=== PATIENT | male | born 1970 | race Two or more races ===

== ENCOUNTER 2024-02-10 16:29 | Inpatient (IN) | payer MEDICAID, SELFPAY ==
[2024-02-10] VITALS (29 sets, daily range): BP systolic 62–170; BP diastolic 35–87; PULSE 42–116; RESP 0–87; TEMP 35.9–39.7; O2SAT 78–100; BMI 23.4
--- NOTE | 2024-02-10 16:30 | PC.NURSE ---
arrived by ambulance with c/o fever and ams per family. family states that he gets a fever everytime they do dialysis and he had dialysis today. Pt with vascath to left chest
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
--- NOTE | 2024-02-10 16:47 | XR_ITS ---
Examination: AP chest single view TECHNIQUE: AP portable upright chest single view Exam date and time: February 10, 2024 1723 hours Comparison June 01, 2023 INDICATIONS: Sepsis alert today FINDINGS: Significant right lung pneumonia Large layered right pleural effusion Stable position left subclavian dialysis catheter Mild enlargement cardiac contour with mild to moderate vascular congestion Minor blunting of the left lateral costophrenic angle IMPRESSION: Significant right lung pneumonia Large layered right pleural effusion
--- NOTE | 2024-02-10 16:47 | EKG_ITS ---
[facility] Test Date: 2024-02-10 Pat Name: LIBORIO CASPER Department: Room: - Gender: Male [employer]: : [id number] Requested By: Idania Savage Order Number: [id number] Reading MD: Idania Savage Measurements Intervals [place] Rate: 89 P: 63 IL: 162 QRS: -6 QRSD: 91 T: 194 QT: 361 QTc: 440 Interpretive Statements SINUS RHYTHM ST DEVIATION AND MODERATE T-WAVE ABNORMALITY, CONSIDER LATERAL ISCHEMIA [-0.1+ mV T WAVE IN I/aVL/V5/V6] ST DEVIATION AND MODERATE T-WAVE ABNORMALITY, CONSIDER INFERIOR ISCHEMIA [-0.1+ mV T WAVE IN II/aVF] Compared to ECG 01/18/2024 17:38:59 Possible ischemia now present Prolonged QT interval no longer present T-wave abnormality still present /store/S0/[id number]/ecg/[id number].pdf
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
[2024-02-10 17:09] LABS: Lactate (Lactic Acid) 0.8 mMol/L (0.4-2.0)
--- NOTE | 2024-02-10 17:11 | PC.NURSE ---
dagmar n/p informed that in and out cath done and there was no urine
[2024-02-10 17:13] LABS: Basophils % (Auto) 0 % (0-2.5); Eosinophils # (Auto) 0.1 Thou/mm3 (0.0-0.5); Eosinophils % (Auto) 2 % (0-10); Hematocrit 31.3 % (41.0-53.0); Hemoglobin 10.4 g/dL (13.5-16.0); Immature Granulocytes % (Auto) 0 % (0-0); Immature Granulocytes Auto 0.01 Thou/mm3 (0.00-0.00); Lymphocytes # (Auto) 0.3 Thou/mm3 (1.0-4.8); Lymphocytes % (Auto) 6 % (10-50); Mean Corpuscular HGB Conc 33.2 g/dl (31.0-37.0); Mean Corpuscular Hemoglobin 31.9 pg (25.0-35.0); Mean Corpuscular Volume 96 fL (80-100); Monocytes # (Auto) 0.3 Thou/mm3 (0.0-0.8); Monocytes % (Auto) 6 % (0-12); Neutrophils # (Auto) 4.1 Thou/mm3 (1.8-7.7); Neutrophils % (Auto) 85 % (37-80); Nucleated Red Blood Cell % 0 /100 WBC (0); Platelet Count 104 Thou/mm3 (140-440); RDW Standard Deviation 51.1 fL (35.1-43.9); Red Blood Count 3.26 Miln/mm3 (4.50-5.90); White Blood Count 4.9 Thou/mm3 (3.8-10.6)
[2024-02-10 17:28] LABS: B-Type Natriuretic Peptide 451 pg/mL (0-100)
[2024-02-10 17:41] LABS: Partial Thromboplastin Time 33.8 Seconds (22.0-36.0); Prothrombin Time 11.4 Seconds (9.0-12.2)
[2024-02-10] MEDS: ACETAMINOPHEN SUPP 650 MG SUPP PR (17:42)
[2024-02-10] MEDS: PIPER/TAZO 3.375 GM 3.375 GM/50 ML BAG IV (17:43)
[2024-02-10 17:55] LABS: Alanine Aminotransferase 66 U/L (10-49); Albumin/Globulin Ratio 0.9 (1.2-2.2); Alkaline Phosphatase 298 U/L (46-116); Anion Gap 10 (7-16); Aspartate Amino Transferase 83 U/L (0-34); BUN/Creatinine Ratio 19 Ratio (12-20); Bilirubin,Total 0.2 mg/dL (0.3-1.2); Blood Urea Nitrogen 75 mg/dL (9-23); Calcium 10.2 mg/dL (8.3-10.6); Calcium (Corrected) 10.2 mg/dL (8.5-10.1); Carbon Dioxide 27.5 mMol/L (20.0-31.0); Chloride 99 mMol/L (98-107); Estimated Creatinine Clearance 14.8 mL/min (>60); Globulin 4.6 gm/dL (2.3-3.5); Glucose 95 mg/dL (74-106); LDH (Lactate Dehydrogenase) 333 U/L (120-246); Lipase 56 U/L (12-53); Magnesium 2.5 mg/dL (1.6-2.6); Osmolality,Calculated 294 (275-295); Phosphorous 3.3 mg/dL (2.4-5.1); Potassium 3.9 mMol/L (3.4-5.1); Procalcitonin 1.61 ng/ml (0.0-0.49); Sodium 136 mMol/L (136-145); Total Protein 8.6 gm/dL (5.7-8.2); eGFR 17 See Note
[2024-02-10 17:58] LABS: Troponin I 0.046 ng/mL (0.0-0.045)
[2024-02-10 18:36] LABS: Base Excess 4 (-3-3); HCO3 29 mEq/L (20-26); Inspired Oxygen, FIO2 21 %; O2 Saturation 77 % (91-98); PCO2 45 mmHg (32.0-48.0); pH, Arterial 7.42 (7.35-7.45)
[2024-02-10 18:42] LABS: Allen Test Performed/OK; Puncture Site Left Radial
[2024-02-10 18:44] LABS: PO2 42 mmHg (83-108)
[2024-02-10] MEDS: AZITHROMYCIN INJ 500 MG in SODIUM CHLORIDE 0.9% 250 ML 250 ML 250 MG IV (18:59)
[2024-02-10] MEDS: LORazepam 2 MG/ML VIAL 1 MG IVP (19:00)
[2024-02-10] MEDS: ONDANSETRON INJ 2 MG/ML INJ 2 ML 4 MG IV (19:03)
--- NOTE | 2024-02-10 19:15 | PC.NURSE ---
Pt went into respiratory failure, HR 50's, code arash called.
[2024-02-10] MEDS: ETOMIDATE INJ 2 MG/ML VIAL 10 ML 20 MG IVP (19:21)
[2024-02-10] MEDS: Norepinephrine/NS 16mg/250ml 16 MG/250 ML BAG 2.551 MG IV (19:30)
--- NOTE | 2024-02-10 19:30 | PC.NURSE ---
Pt cardiac rhythm Vfib which turn into PEA, CPR started, code blue called over head.
--- NOTE | 2024-02-10 19:40 | PC.NURSE ---
[facility] at 1938
[2024-02-10] MEDS: PROPOFOL 1,000 MG IVPB 1,000 MG/100 ML VIAL 1.633 MG IV (19:45)
--- NOTE | 2024-02-10 19:47 | PD.EDADDENDU ---
Emergency Room Addendum <Domingo Rodriguez MD - Last Filed: 02/10/24 20:00> Addendum Narrative: 7:[address] Rodriguez's note: This patient was being taken care by my PA Adalberto, when he all of a sudden went into cardiorespiratory arrest. CODE BLUE was announced overhead at 7:16 PM. Initially patient was only in respiratory arrest but in 15 minutes he lost his pulse. We proceeded to intubate him immediately. 2 residents tried to intubate him with a glide scope but they were unable to. Therefore a head bookkeeper tried to intubate him with a straight blade but he could not do either. Then, without wasting any time, I proceeded to intubate him with a conventional laryngoscope using MAC 4 blade and 7 and half ET tube, and the first try without wasting any time; we obtained a good CO2 capnometer color change and good bilaterally equal breath sounds. This was all done under 20 mg of etomidate and 10 mg of rocuronium IV. During this time CPR was being performed without stopping except for pulse check and appropriate drugs given including 2 calcium chloride and 1 amp of sodium bicarb. Initially patient was in persistent PEA but eventually he recovered a good strong pulse. The ICU resident is taking over the care and he is putting a central line in his right groin. <Nargis Watson - Last Filed: 02/10/24 20:01> Addendum Narrative: 7:[address] Rodriguez's note: This patient was being taken care by my PA Adalberto, when he all of a sudden went into cardiorespiratory arrest. CODE BLUE was announced overhead at 7:16 PM. Initially patient was only in respiratory arrest but in 15 minutes he lost his pulse. We proceeded to intubate him immediately. 2 residents tried to intubate him with a glide scope but they were unable to. Therefore a head bookkeeper tried to intubate him with a straight blade but he could not do either. Then, without wasting any time, I proceeded to intubate him with a conventional laryngoscope using MAC 4 blade and 7 and half ET tube, and the first try without wasting any time; we obtained a good CO2 capnometer color change and good bilaterally equal breath sounds. This was all done under 20 mg of etomidate and 10 mg of rocuronium IV. During this time CPR was being performed without stopping except for pulse check and appropriate drugs given including 2 calcium chloride and 1 amp of sodium bicarb. Initially patient was in persistent PEA but eventually he recovered a good strong pulse. The ICU resident is taking over the care and he is putting a central line in his right groin. CRITICAL CARE: TIME: 30 minutes. The high probability of sudden, clinically significant deterioration in the patient?s condition required the highest level of my preparedness to intervene urgently. The services I provided to this patient were to treat and/or prevent clinically significant deterioration. Services included the following: chart data review, reviewing nursing notes and/or old charts, documentation time, wellness consultant collaboration regarding findings and treatment options, medication orders and management, direct patient care, vital sign assessments and ordering, interpreting and reviewing diagnostic studies and lab tests. Aggregate critical care time includes only time during which I was engaged in work directly related to the patient?s care, as described above, whether at bedside or elsewhere in the Emergency Department. It did not include time spent performing other reported procedures or the services of residents, students, nurses or physician assistants.
--- NOTE | 2024-02-10 20:08 | XR_ITS ---
Examination: AP chest single view Technique: AP portable supine chest single view Exam date and time: February 10, 2024 2016 hrs. Comparison January 18, 2024, February 10, 2024 1719 hrs. Indications: Hypoxic respiratory failure postintubation today Findings: Mild enlargement cardiac contour with prominent vascular congestion Pneumonia right base with large right pleural effusion Stable position cardiac left subclavian dialysis catheter tip Endotracheal tube tip 4.5 cm above jolanta Orogastric tube in stomach, the tip below the level of the film Impression: Interval endotracheal tube, tip 4.5 cm above jolanta Interval orogastric tube in the stomach, the tip below the level of the film
--- NOTE | 2024-02-10 20:11 | XR_ITS ---
Examination: CT chest, without intravenous contrast. Sagittal and coronal 2-D reconstructions. Exam date and time: February 10, 2024 at 2100 hrs. Indications: Hypoxic respiratory failure, pneumonia ARDS pattern on chest imaging this week Comparison: March 26, 2021 CTDI:vol (mGy) 23.9 DLP: (mGycm) 85 Technique: Multiple 3.0 mm axial sections of the chest to been obtained. Bone and lung density settings are obtained. Sagittal and coronal 2-D reconstructions have been obtained. Low dose protocols were performed. One or more of the following dose reduction techniques were used; automated exposure control, adjustment of the mA and/or KV according to patient size, use of iterative reconstruction technique. Findings: Endotracheal tube tip 2.7 cm above jolanta No thoracic aortic aneurysm dilatation Pulmonary artery segments are not enlarged Moderate calcification left anterior descending coronary artery Extensive bilateral pneumonia with multiple right lower lobe pulmonary nodules, the largest 7 mm Extensive loculated right pleural fluid Mild left pleural fluid Orogastric tube in the stomach Distended gallbladder Spleen not enlarged No pancreatic mass No hydronephrosis Abdominal aortic calcification no aneurysmal dilatation Large osteolytic areas T11 and T12 Impression: Extensive bilateral pneumonia Loculated extensive right pleural disease Distended gallbladder, recommend hepatobiliary sonography follow-up Extensive osteolytic areas involving T12 and T11, likely osteomyelitis or osseous metastatic disease, recommend MRI thoracic spine follow-up pre and postcontrast
[2024-02-10] MEDS: fentaNYL 2,500 MCG/250 ML BAG 2,500 MCG/250 ML BAG IV (20:12)
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
[2024-02-10 20:52] LABS: Basophils % (Auto) 0 % (0-2.5); Eosinophils % (Auto) 0 % (0-10); Hematocrit 33.6 % (41.0-53.0); Hemoglobin 10.7 g/dL (13.5-16.0); Immature Granulocytes % (Auto) 1 % (0-0); Immature Granulocytes Auto 0.11 Thou/mm3 (0.00-0.00); Lymphocytes # (Auto) 0.7 Thou/mm3 (1.0-4.8); Lymphocytes % (Auto) 7 % (10-50); Mean Corpuscular HGB Conc 31.8 g/dl (31.0-37.0); Mean Corpuscular Volume 101 fL (80-100); Monocytes # (Auto) 0.2 Thou/mm3 (0.0-0.8); Monocytes % (Auto) 2 % (0-12); Neutrophils # (Auto) 8.6 Thou/mm3 (1.8-7.7); Neutrophils % (Auto) 90 % (37-80); Nucleated Red Blood Cell # 0.02 Thou/mm3 (0.00-0.00); Nucleated Red Blood Cell % 0 /100 WBC (0); Platelet Count 126 Thou/mm3 (140-440); RDW Standard Deviation 53.6 fL (35.1-43.9); Red Blood Count 3.34 Miln/mm3 (4.50-5.90); White Blood Count 9.6 Thou/mm3 (3.8-10.6)
[2024-02-10 20:55] LABS: Lactate (Lactic Acid) 4.5 mMol/L (0.4-2.0)
[2024-02-10 21:28] LABS: Alanine Aminotransferase 62 U/L (10-49); Albumin, Serum 3.4 gm/dL (3.5-5.0); Albumin/Globulin Ratio 0.9 (1.2-2.2); Alkaline Phosphatase 272 U/L (46-116); Anion Gap 13 (7-16); Aspartate Amino Transferase 99 U/L (0-34); BUN/Creatinine Ratio 18 Ratio (12-20); Bilirubin,Total 0.3 mg/dL (0.3-1.2); Blood Urea Nitrogen 78 mg/dL (9-23); Calcium 11.1 mg/dL (8.3-10.6); Calcium (Corrected) 11.6 mg/dL (8.5-10.1); Carbon Dioxide 21.9 mMol/L (20.0-31.0); Chloride 102 mMol/L (98-107); Creatinine (Component) 4.3 mg/dL (0.6-1.3); Estimated Creatinine Clearance 13.7 mL/min (>60); Globulin 3.9 gm/dL (2.3-3.5); Glucose 150 mg/dL (74-106); Magnesium 2.6 mg/dL (1.6-2.6); Osmolality,Calculated 300 (275-295); Phosphorous 5.2 mg/dL (2.4-5.1); Potassium 3.5 mMol/L (3.4-5.1); Sodium 137 mMol/L (136-145); Total Protein 7.3 gm/dL (5.7-8.2); eGFR 15 See Note
[2024-02-10 21:36] LABS: Base Excess -4 (-3-3); HCO3 24 mEq/L (20-26); Inspired Oxygen, FIO2 21 %; O2 Saturation 94 % (91-98); PCO2 56 mmHg (32.0-48.0); PO2 82 mmHg (83-108); pH, Arterial 7.24 (7.35-7.45)
[2024-02-10 21:38] LABS: Allen Test Performed/OK; Puncture Site Left Radial
--- NOTE | 2024-02-10 21:44 | PC.RT ---
PT transferred to CT on Transport vent without complications, then to ICU. No complications in Route. PT arrived to ICU @2107 and report given to RT Pieter.
--- NOTE | 2024-02-10 21:49 | PC.RT ---
RR increased to 22 per Md Sullivan and post ABG.
[2024-02-10] MEDS: PANTOPRAZOLE INJ 40 MG VIAL IVP (21:54)
--- NOTE | 2024-02-10 21:56 | PC.RT ---
RR changed to 22 per RT Desire due to abg results, fio2 titrated to 90% at this time. DR. Tian made aware.
[2024-02-10] MEDS: LORazepam 2 MG/ML VIAL IVP (21:57)
[2024-02-10] MEDS: MIDODRINE 5 MG TABLET 10 MG PO (22:35)
[2024-02-10] MEDS: VANCOMYCIN/NS 1 GM IVPB 200 ML IV (22:51)
--- NOTE | 2024-02-10 22:51 | PC.NURSE ---
Per MD MAHAN, made aware of Vancomycin allergy. Per , he stated it's still okay to give at this time.
[2024-02-10 23:43] LABS: Reflex Lactate? Y
[2024-02-11] VITALS (85 sets, daily range): BP systolic 71–168; BP diastolic 44–89; PULSE 62–92; RESP 18–38; TEMP 36.4–37.5; O2SAT 89–98; BMI 22.1; BMI 22.2
--- NOTE | 2024-02-11 00:37 | XR_ITS ---
Examination: Abdomen AP single view Technique: AP portable supine abdomen, single view Exam date and time: February 11, 2024 1242 hours INDICATIONS: Post central line placement FINDINGS: Right common femoral central line tip IVC satisfactory position Nonobstructive bowel gas pattern IMPRESSION: Right common femoral central line tip satisfactory position
[2024-02-11] MEDS: VASOPRESSIN IN NS IVPB 20 UNIT/100 ML BAG 9 UNIT IV ×2 (01:00→09:55)
[2024-02-11 01:25] LABS: Lactic Acid, 3 HR 2.6 mMol/L (0.4-2.0)
--- NOTE | 2024-02-11 04:16 | ECHO_ITS ---
Transthoracic Echo Report Ht (in): 60 Wt (lb): 120 Exam Location: Portable Status: Inpatient Electrical Power Engineer: Medina Reilly Indications: Procedure Performed: BP: 83 / 57 HR: 78 Rhythm: Sinus Technical Quality: Fair MEASUREMENTS (Male / Female) Normal Values 2D ECHO LV Diastolic Diameter PLAX 3.6 cm 4.2 - 5.9 / 3.9 - 5.3 cm LV Systolic Diameter PLAX 2.7 cm IVS Diastolic Thickness 1.0 cm 0.6 - 1.0 / 0.6 - 0.9 cm LVPW Diastolic Thickness 0.9 cm 0.6 - 1.0 / 0.6 - 0.9 cm LV Relative Wall Thickness 0.5 LVOT Diameter 1.9 cm LA Volume Index 23.4 cm?/m? 16 - 28 cm?/m? Ascending Aorta Diameter 2.9 cm M-MODE Aortic Root Diameter MM 3.3 cm LA Systolic Diameter MM 2.6 cm LA Ao Ratio MM 0.8 DOPPLER AV Peak Velocity 164.0 cm/s AV Peak Gradient 10.8 mmHg AV Mean Gradient 4.0 mmHg AV Velocity Time Integral 20.3 cm LVOT Peak Velocity 123.0 cm/s LVOT Peak Gradient 6.1 mmHg LVOT Velocity Time Integral 16.2 cm LVOT Cardiac Index 2346.2 cm?/min?m? AV Area Cont Eq vti 2.3 cm? AV Area Cont Eq pk 2.1 cm? MV Peak Velocity 76.0 cm/s MV Peak Gradient 2.3 mmHg MV Mean Velocity 45.2 cm/s MV Mean Gradient 1.0 mmHg MV Area PHT 3.0 cm? Mitral E Point Velocity 68.4 cm/s Mitral A Point Velocity 63.1 cm/s Mitral E to A Ratio 1.1 LV E' Lateral Velocity 4.6 cm/s Mitral E to LV E' Lateral Ratio 15.0 LV E' Septal Velocity 4.7 cm/s Mitral E to LV E' Septal Ratio 14.6 FINDINGS Left Ventricle Normal left ventricular size, systolic function with no obvious regional wall motion abnormalities. Mild LVH. The ejection fraction is visually estimated at 50 %. Right Ventricle The right ventricle is normal in size and systolic function. Left Atrium The left atrium is normal by two-dimensional, color flow and Doppler imaging with no structural abnormalities, no thrombus formation present. Right Atrium The right atrium is normal by two-dimensional imaging, color flow and Doppler imaging with no struct ural abnormalities, no thrombus formation present. Atrial Septum The interatrial septum appears normal with no evidence of a shunt. Aorta The aorta is normal by two-dimensional, color flow and Doppler interrogation. Mitral Valve The mitral valve is mildly MAC. There is trace mitral valve regurgitation. Aortic Valve The aortic valve is trileaflet and normal by two-dimensional, color flow and Doppler interrogation. There is no significant aortic valve regurgitation. Tricuspid Valve The tricuspid valve is normal by two-dimensional, color flow and Doppler interrogation. There is tra ce tricuspid valve regurgitation. Pulmonic Valve There is no significant pulmonic valve regurgitation. Vessels The pulmonary artery appears normal. The inferior vena cava pulmonary and hepatic veins appear yayo l. Pericardium The pericardium is normal by two-dimensional imaging. There is small to moderate pericardial effusi on near the RA. Other Findings Pleural effusion present. CONCLUSIONS Normal LV size and function. Mild LVH. Estimated EF 50% Normal RV size and function. Mild MAC. Trace MR, TR. Pleural effusion present. Hilary Arrieta (Electronically Signed) Final Date: 12 February 2024 13:55
[2024-02-11 04:53] LABS: Lactate (Lactic Acid) 2.1 mMol/L (0.4-2.0)
--- NOTE | 2024-02-11 04:57 | PD.RESPROC ---
Procedures Procedure Date / Time 02/11/24 0457 Procedure Narrative Procedure Narrative: Attending attestation: I agree with placement of central access for vasopressor support. I was not present for the procedure. No immediate complications. Central Line Placement Right Femoral: Indication(s): shock and poor, or inadequate peripheral venous access Informed consent obtained: obtained from surrogate decision maker and procedure done urgently Time out done, and the following verified: correct patient, side and site, procedure, patient position and implants and/or equipment Patient placed on monitor/pulse ox: Yes Hand Hygiene: soap & water and alcohol-based hand rub Max Sterile Barrier Techniques used: cap, mask, sterile gown, sterile gloves and sterile full body drape Central line prep: Chlorhexidine scrub Local anesthesia used: other anesthetic Amount of anesthesia used (mL): 0 Ultrasound used for placement: Yes Sterile Technique if Ultrasound used, including sterile gel: yes Central line lumen inserted: triple Post procedure: sutured in place, good blood return, all ports aspirated, flushed, capped and sterile dressing applied Post procedure x-ray: tip of catheter in good position Patient tolerated procedure: well EBL(ml): 5 Complications: none Procedure comment: The patient required a central line due to hemodynamic instability and the requirement of pressors.
[2024-02-11 05:00] LABS: Basophils % (Auto) 0 % (0-2.5); Eosinophils % (Auto) 1 % (0-10); Hematocrit 23.3 % (41.0-53.0); Immature Granulocytes % (Auto) 1 % (0-0); Immature Granulocytes Auto 0.05 Thou/mm3 (0.00-0.00); Lymphocytes # (Auto) 0.4 Thou/mm3 (1.0-4.8); Lymphocytes % (Auto) 6 % (10-50); Mean Corpuscular HGB Conc 31.8 g/dl (31.0-37.0); Mean Corpuscular Hemoglobin 31.8 pg (25.0-35.0); Mean Corpuscular Volume 100 fL (80-100); Monocytes # (Auto) 0.4 Thou/mm3 (0.0-0.8); Monocytes % (Auto) 5 % (0-12); Neutrophils # (Auto) 6.6 Thou/mm3 (1.8-7.7); Neutrophils % (Auto) 88 % (37-80); Nucleated Red Blood Cell % 0 /100 WBC (0); Platelet Count 95 Thou/mm3 (140-440); RDW Standard Deviation 54.4 fL (35.1-43.9); Red Blood Count 2.33 Miln/mm3 (4.50-5.90); White Blood Count 7.6 Thou/mm3 (3.8-10.6)
[2024-02-11 05:03] LABS: Base Excess -1 (-3-3); HCO3 25 mEq/L (20-26); Inspired Oxygen, FIO2 90 %; O2 Saturation 88 % (91-98); PCO2 45 mmHg (32.0-48.0); pH, Arterial 7.35 (7.35-7.45)
[2024-02-11 05:03] LABS: Hemoglobin 7.4 g/dL (13.5-16.0)
[2024-02-11 05:05] LABS: Allen Test Performed/OK; PO2 56 mmHg (83-108); Puncture Site Right Radial
[2024-02-11] MEDS: DEXTROSE 50%-WATER INJ 50 ML SYRINGE IV ×2 (05:07→05:08)
[2024-02-11] MEDS: MIDODRINE 5 MG TABLET 10 MG PO ×2 (05:11→13:34)
--- NOTE | 2024-02-11 05:12 | PC.RT ---
fio2 increased to 95% per abg results DR. Asmita huff.
[2024-02-11 05:35] LABS: Alanine Aminotransferase 64 U/L (10-49); Albumin/Globulin Ratio 0.9 (1.2-2.2); Alkaline Phosphatase 206 U/L (46-116); Anion Gap 11 (7-16); Aspartate Amino Transferase 106 U/L (0-34); BUN/Creatinine Ratio 21 Ratio (12-20); Bilirubin,Total 0.3 mg/dL (0.3-1.2); Blood Urea Nitrogen 91 mg/dL (9-23); Calcium 10.2 mg/dL (8.3-10.6); Carbon Dioxide 24.4 mMol/L (20.0-31.0); Chloride 105 mMol/L (98-107); Creatinine (Component) 4.4 mg/dL (0.6-1.3); Estimated Creatinine Clearance 13.4 mL/min (>60); Globulin 3.5 gm/dL (2.3-3.5); Magnesium 2.4 mg/dL (1.6-2.6); Osmolality,Calculated 303 (275-295); Phosphorous 3.8 mg/dL (2.4-5.1); Potassium 3.6 mMol/L (3.4-5.1); Sodium 140 mMol/L (136-145); Total Protein 6.5 gm/dL (5.7-8.2); Vancomycin,Random 19.7 mcg/mL; eGFR 15 See Note
[2024-02-11 05:37] LABS: Glucose 29 mg/dL (74-106)
[2024-02-11 07:51] LABS: Reflex Lactate? Y
[2024-02-11 08:37] LABS: Lactic Acid, 3 HR 3.4 mMol/L (0.4-2.0)
[2024-02-11] MEDS: HEPARIN SOD INJ 5000 UNIT/ML VIAL SC (09:02)
[2024-02-11] MEDS: PIPER/TAZO 3.375 GM 3.375 GM/50 ML BAG IV (09:02)
[2024-02-11] MEDS: PANTOPRAZOLE INJ 40 MG VIAL IVP (09:02)
[2024-02-11] MEDS: HYDROCORTISONE SOD SUCC INJ 100 MG VIAL IV (09:55)
--- NOTE | 2024-02-11 11:13 | PD.NEPHCONS ---
History of Present Illness Data of Consult Consult date: 02/11/24 Requesting Physician: Lupillo Sullivan MD Primary Care Provider: Dany Deleon MD Consult Narrative Reason for consult: ESRD History of present illness: Chart review done as patient currently seen in ICU on the ventilator. Mr. 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 Patient did complete dialysis yesterday. Patient was noted to be hypotensive, needing pressors. He was transferred to ICU and intubated. Working diagnosis sepsis Home medications included atorvastatin, Plavix, gabapentin, hydralazine, insulin, nifedipine, Renvela cc:: cc: Lupillo Sullivan MD Review of Systems Review of Systems ROS Unobtainable: due to endotracheal tube Past Medical History Past Medical History NEUROLOGIC: Positive Neurological Disorders, Cerebrovascular Accident, Seizures and Peripheral Neuropathy CARDIAC: Positive Cardiac Disorders, Hypercholesterolemia, Edema and Hypertension; Negative Myocardial Infarction or Congestive Heart Failure RESPIRATORY: Positive Pneumonia; Negative Chronic Obstructive Pulmonary Disease (COPD) or Asthma GASTROINTESTINAL: Positive Gastrointestinal Disorders, Ulcer and Gastroesophageal Reflux Disease; Negative Gastrointestinal Bleed or Hemorrhoids GENITOURINARY: Positive Genitourinary Disorders, Renal Disease and Dialysis MUSCULOSKELETAL: Positive Musculoskeletal Disorders, Fractures and Osteomyelitis ENT: Positive Cataracts and Blind ENDOCRINE: Positive Endocrine Disorders, Diabetes Mellitus Type 2 and Hypoglycemia; Negative Diabetes Mellitus Type 1 HEMATOLOGIC: Positive Blood Disorders and Anemia; Negative Sickle Cell Disease PSYCHO/SOCIAL: Positive Recreational Drug Use, Depression and Anxiety OTHER HISTORY: Positive Hospitalization, Falls, Chicken Pox and Clostridium Difficile; Negative Autoimmune Disease, Blood Transfusions, Blood Transfusion Reaction, Anesthesia Reactions, Organ Transplant or Cancer Family History FAMILY HISTORY: Negative Family Neurologic Problems, Family Psychiatric Problems, Family Respiratory Disorders, Family Cardiac Disorders, Family Gastrointestinal Problems, Family Cancer, Family Surgery or Family Anesthesia Reaction Surgical History SURGICAL: Positive Abdominal Surgery and Amputation; Negative Cardiac Surgery, Endocrine Surgery or Organ Transplant Social History SMOKING STATUS: Unknown if ever smoked SECOND HAND EXPOSURE: No SUBSTANCE USE: does not use Meds Home Medications and Allergies Home Medications ?Medication ?Instructions ?Recorded ?Confirmed ?Type mirtazapine 30 mg tablet 30 mg PO HS 03/19/20 01/22/24 History atorvastatin 80 mg tablet 80 mg PO HS 12/30/21 01/22/24 History sevelamer carbonate 800 mg tablet 800 mg PO TIDWM 12/30/21 01/22/24 History clopidogrel 75 mg tablet 75 mg PO QDAY 06/01/23 01/22/24 History gabapentin 300 mg capsule 300 mg PO HS 06/01/23 01/22/24 History insulin glargine 100 unit/mL (3 5 unit subcut QAM 06/01/23 01/23/24 History mL) subcutaneous pen (Basaglar KwikPen U-100 Insulin) Allergies Allergy/AdvReac Type Severity Reaction Status Date / Time meropenem Allergy Severe Hives Verified 01/18/24 12:36 vancomycin Allergy Severe Difficulty Verified 01/18/24 12:36 Breathing Exam Vital Signs Temp Pulse Resp BP Pulse Ox O2 Del Method O2 Flow Rate 36.7 C 89 15 115/67 91 L Nasal Cannula 9 02/11/24 04:00 02/11/24 10:55 02/10/24 21:10 02/11/24 10:55 02/11/24 10:55 02/10/24 18:00 02/10/24 18:00 FiO2 95 02/11/24 10:55 Narrative Exam GEN: patient currently seen in ICU. 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: Patient intubated, sedated Results Labs 02/11/24 04:47 02/11/24 04:47 Labs: Short CBC 02/10/24 02/10/24 02/11/24 Range/Units 17:04 20:39 04:47 WBC 4.9 9.6 D 7.6 (3.8-10.6) Thou/mm3 Hgb 10.4 L 10.7 L 7.4 L D (13.5-16.0) g/dL Hct 31.3 L 33.6 L 23.3 L D (41.0-53.0) % Plt Count 104 L 126 L D 95 L D (140-440) Thou/mm3 BMP 02/10/24 02/10/24 02/11/24 17:04 20:39 04:47 Sodium 136 137 140 Potassium 3.9 3.5 3.6 Chloride 99 102 105 Carbon Dioxide 27.5 21.9 24.4 BUN 75 H 78 H 91 H Creatinine 4.0 H 4.3 H* 4.4 H* Glucose 95 150 H D 29 L* D Calcium 10.2 11.1 H 10.2 Cardiac Enzymes 02/10/24 Range/Units 17:04 Troponin I 0.046 H* (0.0-0.045) ng/mL Liver Function 02/10/24 02/10/24 02/11/24 Range/Units 17:04 20:39 04:47 Total Bilirubin 0.2 L 0.3 0.3 (0.3-1.2) mg/dL AST 83 H 99 H 106 H (0-34) U/L ALT 66 H 62 H 64 H (10-49) U/L Alkaline Phosphatase 298 H 272 H D 206 H D (46-116) U/L Albumin 4.0 3.4 L D 3.0 L (3.5-5.0) gm/dL ABG Interpretation ABG results: 02/10/24 02/10/24 02/11/24 18:27 21:27 04:36 ABG pH 7.42 7.24 L D 7.35 D ABG pCO2 45 56 H D 45 D ABG pO2 42 L* 82 L D 56 L* D ABG HCO3 29 H 24 25 ABG O2 Saturation 77 L 94 88 L ABG Base Excess 4 H -4 L -1 Assessment & Plan Assessment and plan (1) Acute hypoxemic respiratory failure: Status: Acute (2) Pleural effusion: Status: Acute (3) Pneumonia: Status: Acute (4) Asymptomatic hypertensive urgency: Status: Acute (5) End stage renal failure on dialysis: Status: Acute (6) Hypoglycemia: Status: Acute (7) Metabolic encephalopathy: Status: Acute (8) Sepsis: Status: Acute Additional Assessment & Plan Additional Plan: Patient currently on 2 pressors to maintain blood pressures. Acute hypoxic respiratory failure secondary to pneumonia. On antibiotics. Did receive dialysis yesterday. Noted manage 4. Family made him DNR. Consider comfort care. Spoke to primary team. Thank you [place] for allowing me to participate in the care of Mr. Tomlinson
[2024-02-11] MEDS: Norepinephrine/NS 16mg/250ml 16 MG/250 ML BAG 14.929 MG IV (12:00)
--- NOTE | 2024-02-11 12:03 | PC.NURSE ---
Levophed running at 0.68 mcg/kg/min. Pump setup noted to have patients weight at 23kg with patients actual weight being 51.3 kg. Changed patient weight on pump and self adjusted to 0.31 mcg/kg/min with rate at 14.9 ml/hr. MD Onofre notified of change.
--- NOTE | 2024-02-11 12:31 | PC.SS ---
FISH NET STRINGER conducted bedside contact with the patient. At bedside was the patient?s sister. Initial assessment information obtained from the patient?s sister, Radha Antoine . Patient admitted to the ICU due to altered mental status and hypoxia. Patient currently in ICU intubated and sedated. Patient resides at home with mother, Shari Mack. Patient is wheelchair bound. Patient is non-verbal and blind. Patient utilizes home oxygen. Patient requires assistance with completion of ADL?s. Sister, Radha Antoine; identifies as the patient?s medical surrogate decision maker. Patient?s PCP is Dr. Deleon [facility]. Patient?s prism inspector is Dr. Tinajero. Patient participates with outpatient dialysis; Devan Foreman Sat schedule. [facility] utilized for pharmacy services by the patient. disabilities services officer will discuss discharge needs at an appropriate future time. No further intervention required at this time, socially responsible investment adviser will be available to address any further concerns. Next of Kin: Kylie Antoine D/C Plan: Pending
--- NOTE | 2024-02-11 12:33 | PC.SS ---
Patient's sister, Radha Antoine ; confirmed patient's alignment with [facility].
--- NOTE | 2024-02-11 12:53 | PC.DIETICIAN ---
Nutrition prescription Trophic feeds of Vital 1.2 at 10 ml/hr. No water flushes. When indicated by MD: Switch to Nepro at 20 ml/hr; then advance 10 ml every 8 hrs to goal rate of 35 ml/hr x 24 hrs. If no IV fluids, water flushes of 25 ml/hr (or per MD).
--- NOTE | 2024-02-11 14:19 | PC.NURSE ---
Spoke with Grace from donor network at [phone]. Given an OPA number of [phone]. Awaiting call back and provided direct number to unit.
--- NOTE | 2024-02-11 14:21 | PC.NURSE ---
Spoke with Alek from [facility]or network at [phone] and gave a report on patient and provided labs and imaging. Told he will speak with rn case management and will call back. Told to hold comfort measure until further notice.
[2024-02-11] MEDS: HYDROCORTISONE SOD SUCC INJ 100 MG VIAL 50 MG IV (15:28)
[2024-02-11] MEDS: SCOPOLAMINE 1 MG TDSY TOP (16:29)
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
[2024-02-11] MEDS: MORPHINE SULF INJ 10 MG/ML VIAL 2 MG IVP (16:33)
--- NOTE | 2024-02-11 16:55 | DES_ITS ---
<Statement entered by Sushil Onofre MD - 02/19/24 06:08> I have reviewed and agree with the above documentation. Documentation for date of: 02/11/24 Pronouncement Note Date and Time of Date of : 02/11/24 Time of : 16:47 Additional Data Confirmation of : no pulse, no respirations, no heart sounds and pupils fixed and dilated (Patient had bilateral blindness and pupils were unable to be assessed) Family: at bedside Additional persons at bedside: electric meter technician Attending/PCP notified?: Yes Attending physician: Sushil Onofre MD Was code activated?: No Autopsy requested?: No computer forensics examiner notified?: No Organ bank notified?: Yes Advance directives: Yes
--- NOTE | 2024-02-11 17:03 | DES_ITS ---
<Statement entered by Sushil Onofre MD - 02/19/24 06:09> I have reviewed and agree with the above documentation. See attestation to same-day progress note for plan of care and services provided during the day. Documentation for date of: 02/11/24 Summary Date and Time Date of admission: 02/10/24 20:08 Date of : 02/11/24 Time of : 16:47 Summary Hospital Course: Mr. 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 In the emergency department due to patient's altered mentation he was undergoing intubation at which point he suffered cardiac arrest. CODE BLUE was activated and patient was noted to have pulseless ventricular tachycardia and after chest compressions ROSC was obtained after 8 minutes. Patient was admitted to the ICU for postcardiac arrest monitoring. He remained in shock likely septic due to his bilateral pleural effusions and pneumonia. His Levophed requirement increased during the day and on the ventilator his FiO2 remained 95% with his pulse ox showing oxygen saturation is near 90. Family explained to us that it was their initial wish that he was a DNR/DNI but they were okay with the fact that he was intubated because no documentation was available in regards to his POLST form. We explained to the family that the patient would likely require a chest tube due to his loculated pleural effusions and they informed us that they would like for him to be made comfortable and do not want further interventions. They stated that his quality of life was not going to improve and only the quantity of his days would and that they would prefer that based on his wishes that he is made comfortable. At that point decision was made to reach out to a leather worker to deliver his last rights and after that patient was extubated and placed on comfort care measures. Over a short duration of time patient underwent a natural expiration with time of noted to be 1647. No pulses were palpated, no breath sounds were heard, no heart sounds were heard, pupils were unable to be assessed due to bilateral cataracts. Family was at bedside and condolences were offered. Organ donor network was also notified but stated the patient was not a candidate for donation due to his multiple comorbidities. Additional Data Confirmation of as documented by pronouncing clinician: no pulse, no respirations and no heart sounds Family: at bedside Additional persons at bedside: metal products viewer Attending/PCP notified?: Yes Attending physician: Sushil Onofre M.D. Was code activated?: No Autopsy requested?: No flat examiner notified?: No Organ bank notified?: Yes Advance directives: Yes Hospice patient?: No Visit Providers Provider Primary care physician: Dany Deleon MD Consults: 02/10/24 20:18 Consult to Nephrology Stat Comment: Consulting Provider: Toni Tinajero Discharge Plan Plan Patient Disposition: Prescriptions/Referrals Referrals: aDny Deleon MD [Primary Care Provider] - Patient/Caregiver Discharge Instructions Print Language: Albanian Discharge Order Discharge Orders: Discharge (Routine); Ordered 02/11/24 Ordered By: Duane Cole
--- NOTE | 2024-02-11 17:28 | PC.NURSE ---
Contacted Donor network for TOD. Spoke with minda who stated patient is possible tissue donor. Will call back in an hour to verify Mortuary chosen by family.
--- NOTE | 2024-02-11 18:18 | PC.NURSE ---
[facility] contacted for pickup of patient. Spoke with anastasiia who will call back with an ETA.
--- NOTE | 2024-02-11 19:01 | PC.NURSE ---
Assume care. awaiting home to picker / packer pt. family at bedside.
--- NOTE | 2024-02-11 19:14 | PC.NURSE ---
mortuary staff here to pharmacy picking technician pt's remain.
== END 2024-02-11 16:47 | disposition expired | DRG 720 ==
LOC: SERX 19:47 → S2SX 02-11 06:40 → SERHOLD 02-14 09:49 → S2SX 02-14 09:49
PROVIDERS: Nurse Practitioner Family; Admitting Provider Student in an Organized Health Care Education/Training Program; Emergency Provider Emergency Medicine; PCP Family Medicine; Visit Provider Student in an Organized Health Care Education/Training Program
DX: A41.9 Sepsis, unspecified organism (principal); I47.20 Ventricular tachycardia, unspecified; Z89.512 Acquired absence of left leg below knee; Z89.511 Acquired absence of right leg below knee; I69.351 Hemiplegia and hemiparesis following cerebral infarction affecting right dominant side; Z99.2 Dependence on renal dialysis; I12.0 Hypertensive chronic kidney disease with stage 5 chronic kidney disease or end stage renal disease; H54.8 Legal blindness, as defined in USA; E11.22 Type 2 diabetes mellitus with diabetic chronic kidney disease; N18.6 End stage renal disease; Z66 Do not resuscitate; G93.40 Encephalopathy, unspecified; R57.9 Shock, unspecified; J96.01 Acute respiratory failure with hypoxia; J90 Pleural effusion, not elsewhere classified; R74.01 Elevation of levels of liver transaminase levels; J18.9 Pneumonia, unspecified organism; Z79.4 Long term (current) use of insulin; Z51.5 Encounter for palliative care; G93.41 Metabolic encephalopathy; R65.21 Severe sepsis with septic shock; I16.0 Hypertensive urgency; E11.649 Type 2 diabetes mellitus with hypoglycemia without coma; I46.9 Cardiac arrest, cause unspecified; Z91.158 Patient's noncompliance with renal dialysis for other reason
CPT/HCPCS: 36415; 36600; 71045; 71250; 74018; 80053; 80202; 81001; 82803; 83605; 83615; 83690; 83735; 83880; 84100; 84145; 84484; 85025; 85610; 85730; 87040; 87081; 87086; 87205; 87811; 92950; 93005; 93306; 94002; 94003; 94660; 96365; 96374; 96375; 99291; 99292; J0456; J1643; J1720; J2060; J2270; J2405; J2470; J2543; J2598; J2704; J3010; J3370; J3490; J7050; A9270; J1644